=== PATIENT | female | born 1990 | race Caucasian/White ===

== ENCOUNTER → 2020-11-04 | Outpatient (CLI) | payer OTHER ==
[~2020-11-04] MED LIST: AUGMENTIN 875-1 EACH PO; DOXYCYCLINE HY100 MG PO
[2020-11-04 21:47] LABS: BUN/CREATININE RATIO 10 (0-10)
[2020-11-07 12:14] LABS: HEPATITIS C QUANTITATION HCV Not Detected IU/mL (.)
== END ==
LOC: LAB 20:36
PROVIDERS: Nurse Practitioner Family
DX: G40.909 Epilepsy, unspecified, not intractable, without status epilepticus (principal); K21.00 Gastro-esophageal reflux disease with esophagitis, without bleeding; B18.2 Chronic viral hepatitis C
CPT/HCPCS: 80053; 80061; 83540; 83550; 84439; 84443; 87086; 87522

== ENCOUNTER 2020-11-19 11:45 | Emergency (ER) | payer OTHER ==
[2020-11-19 12:19] LABS: HEMOGLOBIN 11.5 gm/dl (12.3-15.3); RED BLOOD COUNT 4.52 M/UL (4.00-5.10)
[2020-11-19 12:55] LABS: BUN/CREATININE RATIO 9 (0-10)
[2020-11-19] MEDS ORDERED: DOXYCYCLINE HY100 MG PO (14:34)
[2020-11-19] MEDS ORDERED: AUGMENTIN 875-1 EACH PO (14:34)
== END 2020-11-19 15:15 | disposition home or self-care (01) ==
LOC: ER1 11:45
DX: J18.9 Pneumonia, unspecified organism (principal); F17.210 Nicotine dependence, cigarettes, uncomplicated; Z20.822 Contact with and (suspected) exposure to COVID-19; Z88.0 Allergy status to penicillin; Z88.2 Allergy status to sulfonamides; Z91.040 Latex allergy status
CPT/HCPCS: 0240U; 71045; 80053; 82550; 82553; 83605; 83874; 83880; 84484; 85025; 87040; 93005; 99285; Q9967